=== PATIENT | female | born 1940 | race Caucasian/White ===

== ENCOUNTER 2016-07-31 14:08 | Emergency (ER) | payer MEDICARE, OTHER ==
[~2016-07-31] VITALS: Ht 152.4 cm; Wt 50.0 kg
[~2016-07-31 14:08] MED LIST: ACET325T33 PO; ASPI325T4 PO; HYDR-3498 PO; LEVO500T10 PO; OXYC-481 PO
[2016-07-31 14:15] VITALS: Ht 152.4 cm; Wt 50.0 kg
[2016-07-31] MEDS ORDERED: ALBUTEROL 0.083% (NEB) 2.5 MG/3 ML AMP HHN STA (14:17)
[2016-07-31] MEDS ORDERED: SOD CHLORIDE 0.9% 500 ML IV STA (14:17)
[2016-07-31] MEDS ORDERED: IPRATROPIUM (NEB) 0.5 MG/2.5 ML AMP INH ONE (14:30)
[2016-07-31] MEDS ORDERED: METHYLPREDNISOLONE 125 MG INJ IV ONE ×2 (14:30→16:30)
--- NOTE | 2016-07-31 14:45 | RADRPT ---
PROCEDURE: XR Chest. CLINICAL INDICATION: Shortness of breath. TECHNIQUE: Chest x-ray, single view. COMPARISON: 03/09/2016. FINDINGS: The cardiomediastinal silhouette is normal. Aortic arch atherosclerotic calcification is present. There is no evidence of focal pulmonary opacification or large pleural effusion. Degenerative rajput es of the left shoulder are present. The visualized upper abdomen is unremarkable. IMPRESSION: No radiographic evidence of acute cardiopulmonary pathology. RPTAT: HLST .Lissette Reyes MD, MD Date Time Electronically viewed and signed by .Lissette Reyes MD, MD on 07/31/2016 14:45 .T/
[2016-07-31 14:49] LABS: ADD SCAN DIFF NO
[2016-07-31 15:02] LABS: POTASSIUM 3.8 mmol/L (3.5-5.1)
[2016-07-31 15:05] LABS: CREATININE 0.84 mg/dl (0.44-1.00)
[2016-07-31 15:06] LABS: CALCIUM 9.1 mg/dl (8.4-10.2)
[2016-07-31 15:10] LABS: BASOPHILS % 0.1 % (0.0-2.0); HEMATOCRIT 37.1 % (37.0-47.0); HEMOGLOBIN 11.9 g/dl (12.0-16.0); LYMPHOCYTES # 0.8 10^3/ul (0.8-2.9); LYMPHOCYTES % 11.2 % (15.0-51.0); MEAN CORPUSCULAR HEMOGLOBIN 28.4 pg (29.0-33.0); MEAN CORPUSCULAR HGB CONC 32.1 g/dl (32.0-37.0); MEAN CORPUSCULAR VOLUME 88.5 fl (82.0-101.0); MEAN PLATELET VOLUME 9.8 fl (7.4-10.4); MONOCYTE # 0.4 10^3/ul (0.3-0.9); MONOCYTES % 6.3 % (0.0-11.0); NEUTROPHIL # 5.5 10^3/ul (1.6-7.5); NEUTROPHILS % 82.1 % (39.0-77.0); PLATELET COUNT 147 10^3/UL (140-415); RED BLOOD COUNT 4.19 10^6/ul (4.20-5.40); RED CELL DISTRIBUTION WIDTH 15.4 % (11.5-14.5); WHITE BLOOD COUNT 6.7 10^3/ul (4.8-10.8)
--- NOTE | 2016-07-31 16:10 | ERD ---
ER Documentation Chief Complaint Date/Time DATE: 07/31/16 TIME: 16:06 Chief Complaint cough and congestion x 1 wk HPI This 75-year-old female presents to the emergency room for cough and congestion for 1 weeks duration. The patient denies any fevers, but states that she is "out of her blood pressure medication". The patient states that her medication is trazodone and it helps her at night. The patient states that she has no other complaints at this time, and denies any chest pain or palpitations associated with this. ROS All systems reviewed and are negative except as per history of present illness. Medications Home Meds Active Scripts Levofloxacin* (Levofloxacin*) 500 Mg Tablet, 500 MG PO DAILY, #14 TAB Prov:SHARONDA ROBERSON NP 03/11/16 Oxycodone Hcl* (IR) (Roxicodone*) 5 Mg Tab, 5 MG PO BID Y for PAIN for 30 Days, TAB Prov:SHARONDA ROBERSON NP 03/11/16 Hydrocodone Bit-Acetaminophen (Hydrocodone Bit-APAP) 5-325MG Tablet, 1 TAB PO Q6H Y for PAIN for 30 Days, TAB Prov:SHARONDA ROBERSON NP 03/11/16 Aspirin (Aspirin Lite-Coat) 325 Mg Tablet, 325 MG PO BID for 42 Days, TAB Total 6 weeks course Stop date 04/20/2016. Prov:SHARONDA ROBERSON NP 03/11/16 Acetaminophen* (Tylenol*) 325 Mg Tablet, 650 MG PO Q6H Y for PAIN AND OR ELEVATED TEMP for 30 Days, TAB Prov:SHARONDA ROBERSON NP 03/11/16 Allergies Allergies: Coded Allergies: Sulfa (Sulfonamide Antibiotics) (Unverified Allergy, Severe, THROAT CLOSES , 03/06/16) Penicillins (Verified Allergy, Mild, 03/06/16) methadone (Verified Adverse Reaction, Unknown, VOMITS, 03/06/16) PMhx/Soc History of Surgery: No Anesthesia Reaction: No Hx Neurological Disorder: No Hx Respiratory Disorders: No Hx Cardiac Disorders: Yes (HTN, "irregular heart beat") Hx Psychiatric Problems: No Hx Miscellaneous Medical Probl: Yes (HTN, anxiety, depression) Hx Alcohol Use: No Hx Substance Use: No Hx Tobacco Use: Yes (SMOKING FOR 64 YRS) Smoking Status: Current some day smoker Physical Exam Vitals Vital Signs Date Time Temp Pulse Resp B/P Pulse Ox O2 Delivery O2 Flow Rate FiO2 07/31/16 15:38 106 19 96 Nasal Cannula 2.0 07/31/16 15:36 2.0 07/31/16 15:28 Nasal Cannula 2 07/31/16 14:15 99.5 116 18 165/70 99 Physical Exam Const: Frail-appearing elderly female Head: Atraumatic Eyes: Normal Conjunctiva ENT: Normal External Ears, Nose and Mouth. Neck: Full range of motion..~ No meningismus. Resp: Clear to auscultation bilaterally Cardio: Regular rate and rhythm, no murmurs Abd: Soft, non tender, non distended. Normal bowel sounds Skin: No petechiae or rashes Back: No midline or flank tenderness Ext: No cyanosis, or edema Neur: Awake and alert Psych: Normal Mood and Affect Result Diagram: 07/31/16 1435 07/31/16 1435 Results 24 hrs Laboratory Tests Test 07/31/16 14:35 Anion Gap 18 Basophils # 0.010^3/ul Basophils % 0.1% Blood Urea Nitrogen 23mg/dl Calcium Level 9.1mg/dl Carbon Dioxide Level 28mmol/L Chloride Level 100mmol/L Creatinine 0.84mg/dl Eosinophils # 0.010^3/ul Eosinophils % 0.0% Glucose Level 152mg/dl Hematocrit 37.1% Hemoglobin 11.9g/dl Lactic Acid Level 1.3mmol/L Lymphocytes # 0.810^3/ul Lymphocytes % 11.2% Mean Corpuscular Hemoglobin 28.4pg Mean Corpuscular Hemoglobin Concent 32.1g/dl Mean Corpuscular Volume 88.5fl Mean Platelet Volume 9.8fl Monocytes # 0.410^3/ul Monocytes % 6.3% Neutrophils # 5.510^3/ul Neutrophils % 82.1% Nucleated Red Blood Cells # 0.010^3/ul Nucleated Red Blood Cells % 0.0/100WBC Platelet Count 89788^3/UL Potassium Level 3.8mmol/L Red Blood Count 4.1910^6/ul Red Cell Distribution Width 15.4% Sodium Level 142mmol/L White Blood Count 6.710^3/ul Current Medications Medications (Trade) Dose Ordered Sig/Patsy Route PRN Reason Start Time Stop Time Status Last Admin Dose Admin Sodium Chloride (NS) 500 ml @ 500 mls/hr Q1H STAT IV 07/31/16 14:17 07/31/16 15:16 DC 07/31/16 15:05 Methylprednisolone Sodium Succinate (Solu-Medrol) 125 mg ONCE ONCE IV 07/31/16 14:30 07/31/16 14:31 DC 07/31/16 15:05 Albuterol (Proventil 0.083% (Neb)) 5 mg ONCE STAT HHN 07/31/16 14:17 07/31/16 14:28 DC 07/31/16 15:30 Ipratropium [place] (Atrovent 0.02% (Neb)) 0.5 mg ONCE ONCE INH 07/31/16 14:30 07/31/16 14:31 DC 07/31/16 15:30 Procedures/MDM EKG: Rate/Rhythm: [Normal Sinus Rhythm] QRS, ST, T-waves: [No changes consistent w/ acute ischemia] Impression: [No evidence of ischemia or arrhythmia] Chest X-ray 1V Interpreted by me: Soft Tissue: No acute abnormalities Bones: No acute abnormalities Mediastinum/Cardiac Silhouette/Lungs: [No acute abnormalities] This 75-year-old female presents to the emergency room for evaluation of cough and congestion. The patient was evaluated by myself. She was not hypoxic, she is mildly tachycardic. She was given a breathing treatment of albuterol, and Atrovent. Patient was also given 125 mg of Solu-Medrol IV. Do feel this patient is suffering from a viral bronchitis. She will be discharged home with a prescription for ProAir air, and prednisone. She is hemodynamically stable, no respiratory distress at this time. I advised her that it is not appropriate to start her on blood pressure medications in the emergency room and she will need to follow-up with her primary care physician. The patient was not happy about this, but she did verbalize understanding. Blood pressure is 148/70 at bedside Departure Diagnosis: Primary Impression: Acute bronchitis Condition: Stable MAGALIELizzBHAKTI SAMUELS Jul 31, 2016 16:10
[2016-07-31] MEDS ORDERED: PRED20TA PO (16:11)
[2016-07-31] MEDS ORDERED: ALBU8.5H3 INH (16:11)
[2016-07-31 17:30] VITALS: BP 157/70; PULSE 102; RESP 18; TEMP 98.9
== END 2016-07-31 17:30 | disposition home or self-care (01) ==
LOC: E/R 14:08
DX: J20.9 Acute bronchitis, unspecified (principal); R40.2252 Coma scale, best verbal response, oriented, at arrival to emergency department; I10 Essential (primary) hypertension; F17.210 Nicotine dependence, cigarettes, uncomplicated; R40.2142 Coma scale, eyes open, spontaneous, at arrival to emergency department; R40.2362 Coma scale, best motor response, obeys commands, at arrival to emergency department; Z79.82 Long term (current) use of aspirin
CPT/HCPCS: 36415; 71010; 80048; 83605; 85025; 87040; 94664; 96374; 96376; 99284; J2930; J7040

== ENCOUNTER 2016-08-10 15:29 | Emergency (ER) | payer MEDICARE, OTHER ==
[~2016-08-10] VITALS: Ht 157.5 cm; Wt 70.0 kg
[~2016-08-10 15:29] MED LIST changes: +ALBU8.5H3 INH; -LEVO500T10 PO; +PRED20TA PO
[2016-08-10 15:37] VITALS: Ht 157.5 cm; Wt 70.0 kg
[2016-08-10] MEDS ORDERED: IPRATROPIUM (NEB) 0.5 MG/2.5 ML AMP NEB STA (17:40)
[2016-08-10] MEDS ORDERED: METHYLPREDNISOLONE 125 MG INJ IM STA (17:40)
[2016-08-10] MEDS ORDERED: ALBUTEROL 0.083% (NEB) 2.5 MG/3 ML AMP NEB STA (17:40)
--- NOTE | 2016-08-10 19:13 | RADRPT ---
PROCEDURE: XR Chest. CLINICAL INDICATION: Asthma exacerbation. TECHNIQUE: Portable AP upright view of the chest was obtained. COMPARISON: 07/31/2016 FINDINGS: The cardiomediastinal silhouette is within normal limits. The lungs are clear, the diaphragm in nor mal position. There is no evidence for pleural effusion, pneumothorax or pulmonary vascular congest ion. The osseous structures are intact with no evidence for acute abnormality. RPTAT:HJJR IMPRESSION: No evidence for acute intrathoracic pathology or change from 07/31/2016. Physician Tammy Date Time Electronically viewed and signed by Physician Tammy on 08/10/2016 19:13 JR/
[2016-08-10] MEDS ORDERED: ALBU8.5H3 INH (19:53)
[2016-08-10] MEDS ORDERED: PRED20TA PO (19:53)
[2016-08-10] MEDS ORDERED: AZIT250T94 PO (19:53)
--- NOTE | 2016-08-10 20:08 | ERD ---
ER Documentation Chief Complaint Date/Time DATE: 08/10/16 TIME: 20:03 Chief Complaint Cough HPI This is a 75-year-old female who is here for cough. The patient states that she is had a cough for 3 or 4 days but no fever the cough is dry most with occasional productive clear sputum no shortness of breath she does have a runny nose malaise no lack of appetite no chest pain no dyspnea on exertion orthopnea or shortness of breath. ROS All systems reviewed and are negative except as per history of present illness. Medications Home Meds Active Scripts Albuterol Sulfate* (Proair HFA*) 8.5 Gm Hfa.aer.ad, 2 PUFF INH Q4, #1 INHALER Prov:KATE MANRIQUE. DO 08/10/16 Prednisone* (Prednisone*) 20 Mg Tab, 60 MG PO DAILY for 5 Days, TAB Prov:KATE MANRIQUE A. DO 08/10/16 Azithromycin* (Zithromax*) 250 Mg Tablet, 250 MG PO .ZPACK DIRECTED, #6 TAB TAKE 500 MG (2 TABS) THE FIRST DAY THEN 250 MG (1 TAB) DAYS 2-5 Prov:KATE MANRIQUE DO 08/10/16 Prednisone* (Prednisone*) 20 Mg Tab, 20 MG PO DAILY for 4 Days, TAB Prov:BHAKTI VÁSQUEZ DO 07/31/16 Albuterol Sulfate* (Proair HFA*) 8.5 Gm Hfa.aer.ad, 2 PUFF INH Q4H Y for WHEEZING AND SOB, #1 INHALER Prov:BHAKTI VÁSQUEZ DO 07/31/16 Oxycodone Hcl* (IR) (Roxicodone*) 5 Mg Tab, 5 MG PO BID Y for PAIN for 30 Days, TAB Prov:SHARONDA ROBERSON V. REHABILITATION CLERK 03/11/16 Hydrocodone Bit-Acetaminophen (Hydrocodone Bit-APAP) 5-325MG Tablet, 1 TAB PO Q6H Y for PAIN for 30 Days, TAB Prov:SHARONDA ROBERSON V. REHABILITATION CLERK 03/11/16 Aspirin (Aspirin Lite-Coat) 325 Mg Tablet, 325 MG PO BID for 42 Days, TAB Total 6 weeks course Stop date 04/20/2016. Prov:SHARONDA ROBERSON V. REHABILITATION CLERK 03/11/16 Acetaminophen* (Tylenol*) 325 Mg Tablet, 650 MG PO Q6H Y for PAIN AND OR ELEVATED TEMP for 30 Days, TAB Prov:SHARONDA ROBERSON V. REHABILITATION CLERK 03/11/16 Allergies Allergies: Coded Allergies: Sulfa (Sulfonamide Antibiotics) (Unverified Allergy, Severe, THROAT CLOSES , 03/06/16) Penicillins (Verified Allergy, Mild, 03/06/16) methadone (Verified Adverse Reaction, Unknown, VOMITS, 03/06/16) PMhx/Soc History of Surgery: No Anesthesia Reaction: No Hx Neurological Disorder: No Hx Respiratory Disorders: No Hx Cardiac Disorders: Yes (HTN, "irregular heart beat") Hx Psychiatric Problems: No Hx Miscellaneous Medical Probl: Yes (HTN, anxiety, depression) Hx Alcohol Use: No Hx Substance Use: No Hx Tobacco Use: Yes (SMOKING FOR 64 YRS) Smoking Status: Current every day smoker FmHx Family History: No coronary disease Physical Exam Vitals Vital Signs Date Time Temp Pulse Resp B/P Pulse Ox O2 Delivery O2 Flow Rate FiO2 08/10/16 18:40 98.6 112 18 163/72 99 Room Air 08/10/16 18:05 123 20 99 21 08/10/16 15:37 98.7 123 20 146/65 99 Physical Exam Const: Well-developed, well-nourished Head: Atraumatic, normocephalic Eyes: Normal Conjunctiva, PERRLA, EOMI, normal sclera, no nystagmus ENT: Normal External Ears, Nose and Mouth, moist mucus membranes. Neck: Full range of motion. No meningismus, no lymphadenopathy. Resp: No increased work of breathing is mild diffuse scattered rhonchi Cardio: Regular rate and rhythm, no murmurs, S1 S2 present Abd: Soft, non tender x 4, non distended. Normal bowel sounds, no guarding or rebound, no pulsitile abdominal masses or bruits Skin: No petechiae or rashes, no ecchymosis , no maculopapular rash Back: No midline or flank tenderness Ext: No cyanosis, or edema, FROM x 4, normal inspection, neurovascularly intact x 4 Neur: Awake and alert, STR 5/5 x 4, sensation intact x 4, no focal findings, cerebellum intact Psych: Normal Mood and Affect Results 24 hrs Current Medications Medications (Trade) Dose Ordered Sig/Patsy Route PRN Reason Start Time Stop Time Status Last Admin Dose Admin Albuterol (Proventil 0.083% (Neb)) 7.5 mg ONCE STAT NEB 08/10/16 17:40 08/10/16 17:41 DC 08/10/16 18:01 Ipratropium [place] (Atrovent 0.02% (Neb)) 1.5 mg ONCE STAT NEB 08/10/16 17:40 08/10/16 17:41 DC 08/10/16 18:01 Methylprednisolone Sodium Succinate (Solu-Medrol) 125 mg ONCE STAT IM 08/10/16 17:40 08/10/16 17:41 DC 08/10/16 17:53 Procedures/MDM PROCEDURE: XR Chest. CLINICAL INDICATION: Asthma exacerbation. TECHNIQUE: Portable AP upright view of the chest was obtained. COMPARISON: 07/31/2016 FINDINGS: The cardiomediastinal silhouette is within normal limits. The lungs are clear, the diaphragm in normal position. There is no evidence for pleural effusion, pneumothorax or pulmonary vascular congestion. The osseous structures are intact with no evidence for acute abnormality. RPTAT:HJJR IMPRESSION: No evidence for acute intrathoracic pathology or change from 07/31/2016. Physician Tammy Date Time Electronically viewed and signed by Imtiaz Mortensen Physician on 08/10/2016 19:13 JR/ CC: KATE MANRIQUE DO Patient had some neb treatments and Solu-Medrol. She states she feels much better now. She has no increased work of breathing good air movement, much improved breath sounds Departure Diagnosis: Primary Impression: Bronchitis Condition: Stable Patient Instructions: Bronchitis, Antiobiotic Treatment (Adult) KATE MANRIQUE DO Aug 10, 2016 20:08
[2016-08-10 20:40] VITALS: BP 142/76; PULSE 108; RESP 18; TEMP 98.3
== END 2016-08-10 20:43 | disposition home or self-care (01) ==
LOC: E/R 15:29
DX: J20.9 Acute bronchitis, unspecified (principal); I10 Essential (primary) hypertension; F17.210 Nicotine dependence, cigarettes, uncomplicated; Z79.82 Long term (current) use of aspirin
CPT/HCPCS: 71010; 94644; 96372; 99284; J2930

== ENCOUNTER 2016-10-11 15:34 | Emergency (ER) | payer MEDICARE, OTHER ==
[~2016-10-11] VITALS: Wt 50.0 kg
[~2016-10-11 15:34] MED LIST changes: +AZIT250T94 PO
--- NOTE | 2016-10-11 18:27 | ERD ---
ER Documentation Chief Complaint Date/Time DATE: 10/11/16 TIME: 18:16 Chief Complaint SACRAL PAIN RADIATING TO RIGHT LEG WITH NO TRAUMA, UNABLE TO BEAR WT. HPI This 75-year-old female brought into emergency department today by EMS with complaint of right hip, knee, and foot pain. Patient reports pain is >10 on pain scale. Patient states that she is unable to weight-bear, she is unable to move her leg. Reports that 8 months ago she fractured her hip and was treated with surgery denies total hip. States she was at a rehab in [place] and kicked out by the person running the rehab. Patient states she filed a police report but did not press charges. Patient reports that she is homeless. Patient denies alteration in bowel or bladder, dysuria, patient clean, clean clothes, with a convoluted history. Chart review produces no past visit at [facility] ROS All systems reviewed and are negative except as per history of present illness. Medications Home Meds Active Scripts Albuterol Sulfate* (Proair HFA*) 8.5 Gm Hfa.aer.ad, 2 PUFF INH Q4, #1 INHALER Prov:KATE MANRIQUE DO 08/10/16 Prednisone* (Prednisone*) 20 Mg Tab, 60 MG PO DAILY for 5 Days, TAB Prov:DOLLY MANRIQUESTANDIES Darren. DO 08/10/16 Azithromycin* (Zithromax*) 250 Mg Tablet, 250 MG PO .ZPACK DIRECTED, #6 TAB TAKE 500 MG (2 TABS) THE FIRST DAY THEN 250 MG (1 TAB) DAYS 2-5 Prov:DOLLY MANRIQUESTFROYLAN Sanchez DO 08/10/16 Prednisone* (Prednisone*) 20 Mg Tab, 20 MG PO DAILY for 4 Days, TAB Prov:BHAKTI VÁSQUEZ DO 07/31/16 Albuterol Sulfate* (Proair HFA*) 8.5 Gm Hfa.aer.ad, 2 PUFF INH Q4H Y for WHEEZING AND SOB, #1 INHALER Prov:BHAKTI VÁSQUEZ DO 07/31/16 Oxycodone Hcl* (IR) (Roxicodone*) 5 Mg Tab, 5 MG PO BID Y for PAIN for 30 Days, TAB Prov:SHARONDA ROBERSON V. VIDEO JOURNALIST 03/11/16 Hydrocodone Bit-Acetaminophen (Hydrocodone Bit-APAP) 5-325MG Tablet, 1 TAB PO Q6H Y for PAIN for 30 Days, TAB Prov:ROBERSONBRADLYA Lopez. VIDEO JOURNALIST 03/11/16 Aspirin (Aspirin Lite-Coat) 325 Mg Tablet, 325 MG PO BID for 42 Days, TAB Total 6 weeks course Stop date 04/20/2016. Prov:ROBERSON,SHARONDA V. VIDEO JOURNALIST 03/11/16 Acetaminophen* (Tylenol*) 325 Mg Tablet, 650 MG PO Q6H Y for PAIN AND OR ELEVATED TEMP for 30 Days, TAB Prov:ROBERSON,SHARONDA V. VIDEO JOURNALIST 03/11/16 Allergies Allergies: Coded Allergies: Sulfa (Sulfonamide Antibiotics) (Unverified Allergy, Severe, THROAT CLOSES , 03/06/16) Penicillins (Verified Allergy, Mild, 03/06/16) methadone (Verified Adverse Reaction, Unknown, VOMITS, 03/06/16) PMhx/Soc History of Surgery: No Anesthesia Reaction: No Hx Neurological Disorder: No Hx Respiratory Disorders: No Hx Cardiac Disorders: Yes (HTN, "irregular heart beat") Hx Psychiatric Problems: No Hx Miscellaneous Medical Probl: Yes (HTN, anxiety, depression) Hx Alcohol Use: No Hx Substance Use: No Hx Tobacco Use: Yes (SMOKING FOR 64 YRS) Smoking Status: Current every day smoker Physical Exam Vitals Vital Signs Date Time Temp Pulse Resp B/P Pulse Ox O2 Delivery O2 Flow Rate FiO2 10/11/16 15:43 98.7 110 20 142/67 98 Vitals stable, and triage notes reviewed Physical Exam Const: No acute distress Head: Atraumatic Eyes: Normal Conjunctiva, PERRLA, EOMI ENT: Normal External Ears, Nose and Mouth, mucous membranes moist. Neck: Full range of motion. Resp: Chest rise and fall symmetrically, clear to auscultation bilaterally, no respiratory distress Cardio: Regular rate and rhythm, no murmurs, S1-S2, no S3-S4 Abd: Skin: Back: No midline or flank tenderness Ext: Lower Extremity -right lower extremity Skin: No laceration Compartments: Soft Motor: Limited range of motion, history of ORIF. Sensation: Intact to light touch anterior, lateral, inferior surfaces Bones: Generalized tenderness on hip, knee, and foot and into soft tissue and bony prominence Joints: No effusion or laxity Pulses/Perfusion: 2+ DP, Capillary refill < 2 seconds Neur: Awake and alert Psych: Normal Mood and Affect Results 24 hrs Current Medications Medications (Trade) Dose Ordered Sig/Patsy Route PRN Reason Start Time Stop Time Status Last Admin Dose Admin Acetaminophen/ Hydrocodone Bitart ([place] (5/325)) 1 tab ONCE ONCE PO 10/11/16 18:30 10/11/16 18:31 DC 10/11/16 18:26 Procedures/MDM PROCEDURE: XR Hip. CLINICAL INDICATION: right leg pain TECHNIQUE: AP and frog lateral views of the right hip were performed. COMPARISON: Right femur 03/09/2016 FINDINGS: Intramedullary flora and helical screw through the proximal right femur are again noted, the previously seen intertrochanteric fracture is now healed. Demineralization is again noted. Narrowing of the right hip joint is stable. The right femoral head remains normal in contour. The soft tissues are unremarkable. RPTAT:HJJR IMPRESSION: 1. Radiographic healing of the internally fixated intertrochanteric fracture of the right hip without evidence of acute abnormality. 2. Mild degenerative narrowing of the right hip joint is again noted. Physician Tammy Date Time Electronically viewed and signed by Physician Tammy on 10/11/2016 20:05 This pleasant 75-year-old female presenting to the emergency department today for right hip, knee, ankle pain. Patient is having difficulty ambulating. Patient reports history of fractured hip status post repair, states she was at a rehabilitation center and kicked out. Patient reports that she is no longer able to walk. Cauda equina, not suspected. Patient has no fecal or urine incontinence, hardware displacement, fracture, unlikely that x-ray is obtained. Right hip x-ray shows radiographic healing of the internally fixated intertrochanteric fracture of the right hip without evidence of acute abnormality, mild degenerative narrowing of the right hip joint. Lumbar x-ray shows chronic superior L1, L2, and L4 concave compression deformity present. No evidence of lumbar spine abnormality, multilevel degenerative changes are stable when compared to prior exams. Patient treated with [place]. Patient will be discharged home with a short supply of [place], return to emergency department for worsening of symptoms. I feel the patient is stable for discharge at this time outpatient follow-up with primary care physician. I have discussed results , examination findings, the treatment plan with the patient and family present prior to discharge. Indications for emergent reevaluation, side effects of medication were also discussed. All questions were answered. Patient verbalizes understanding and agrees with plan of care. Departure Diagnosis: Primary Impression: Pain of right leg Condition: Good Patient Instructions: Back Pain (Acute Or Chronic) Additional Instructions: Thank you for for coming to [facility] for your care today. Please ask your nurse or provider if you have questions about your care today and do not leave until all your questions have been answered. Please use any medications given as directed and follow-up with your doctor (or the doctor you were referred to) in the next 2-3 days. If you do not have a primary care doctor you may follow up at the community [facility] - [facility] (listed below). You may also use motrin and tylenol as needed for fever and/or pain unless instructed otherwise by your provider or nurse. Indications for more urgent follow-up have been discussed, but you may return to the Emergency Department at ANY time for any worrisome or worsening symptoms. If you have abdominal pain, please know that no test or exam you received is perfect and you should follow up within 8 hours for continued pain. If you had any imaging studies today, such as an X-Ray or CT Scan, these studies will be reviewed later by a radiologist. You will be called if there are important findings that were not identified today, so make sure the contact information you provided at registration is correct. If you received any narcotic pain control medicine today, such as Vicodin, Morphine or Dilaudid, your coordination and judgment may be affected for a number of hours. Please do not drive or operate heavy machinery, and you may want someone to assist you at home. If you were given a prescription for narcotic medication, be aware that it is very addictive- use sparingly and only if necessary. MISAEL CASTANEDA October 11, 2016 18:27
[2016-10-11] MEDS ORDERED: HYDROCODONE/APAP (5/325) TAB PO ONE (18:30)
--- NOTE | 2016-10-11 20:03 | RADRPT ---
PROCEDURE: XR Lumbar Spine. CLINICAL INDICATION: Low back pain. TECHNIQUE: Supine AP and lateral views of the lumbar spine were obtained. COMPARISON: 03/22/2014 FINDINGS: Mineralization is diffusely decreased. Loss of axial height involving the superior L1, L2 and L4 en dplates is unchanged compared to the prior study. No acute fracture is demonstrated. Mild retrolis thesis of L2 relative to L3 and L3 relative to L4 is unchanged. Degenerative disk narrowing is agai n noted most severe at L5-S1 and to a lesser degree at L2-3, L3-4 and L4-5. The remaining intervert ebral discs are grossly normal in height. Facet arthropathy at L5-S1 is present Paraspinal contours are unremarkable. Calcification of the abdominal aorta is severe RPTAT:HJJR IMPRESSION: 1. Chronic superior L1, L2 and L4 concave compression deformities are present on the study of 03/22. 2. No evidence of acute lumbar spine abnormality. 3. Multilevel degenerative changes are stable compared to the prior exam with disk narrowing greate st at L5-S1. Physician Tammy Date Time Electronically viewed and signed by Physician Tammy on 10/11/2016 20:03 JR/
--- NOTE | 2016-10-11 20:05 | RADRPT ---
PROCEDURE: XR Hip. CLINICAL INDICATION: right leg pain TECHNIQUE: AP and frog lateral views of the right hip were performed. COMPARISON: Right femur 03/09/2016 FINDINGS: Intramedullary flora and helical screw through the proximal right femur are again noted, the previousl y seen intertrochanteric fracture is now healed. Demineralization is again noted. Narrowing of the right hip joint is stable. The right femoral head remains normal in contour. The soft tissues are unremarkable. RPTAT:HJJR IMPRESSION: 1. Radiographic healing of the internally fixated intertrochanteric fracture of the right hip withou t evidence of acute abnormality. 2. Mild degenerative narrowing of the right hip joint is again noted. Physician Tammy Date Time Electronically viewed and signed by Physician Tammy on 10/11/2016 20:05 /
[2016-10-11] MEDS ORDERED: HYDR-906 PO (21:01)
[2016-10-11 21:43] VITALS: BP 138/67; PULSE 64; RESP 20; TEMP 98.3
== END 2016-10-11 21:45 | disposition home or self-care (01) ==
LOC: FTE 15:34
DX: M79.604 Pain in right leg (principal); I10 Essential (primary) hypertension; F17.210 Nicotine dependence, cigarettes, uncomplicated; Z79.82 Long term (current) use of aspirin
CPT/HCPCS: 72100; 73510

== ENCOUNTER 2016-10-14 12:50 | Emergency (ER) | payer MEDICARE, OTHER ==
[~2016-10-14] VITALS: Ht 160 cm; Wt 70.0 kg
[~2016-10-14 12:50] MED LIST changes: +HYDR-906 PO
[2016-10-14 13:00] VITALS: Ht 160 cm; Wt 70.0 kg
[2016-10-14] MEDS ORDERED: IBUPROFEN 600 MG TAB PO ONE (15:00)
--- NOTE | 2016-10-14 15:31 | RADRPT ---
PROCEDURE: XR Ankle. CLINICAL INDICATION: Pain. TECHNIQUE: AP oblique and lateral views of the right ankle were performed. COMPARISON: None. FINDINGS: The osseous structures and articular spaces of the right ankle appear intact. No acute fracture or dislocation is seen. No radiopaque foreign body is identified. There is no significant soft tissue swelling. IMPRESSION: 1. Unremarkable right ankle x-ray series. RPTAT: HJPL .Samuel Christine MD, MD Date Time Electronically viewed and signed by .Samuel Christine MD, MD on 10/14/2016 15:31 .L/
--- NOTE | 2016-10-14 15:32 | RADRPT ---
PROCEDURE: XR Knee. CLINICAL INDICATION: Knee pain. Trauma. TECHNIQUE: AP, lateral, and oblique views of the right knee are available for review. COMPARISON: None available FINDINGS: There is an intramedullary fixation flora with interlocking screw in the right femoral shaft. The kne e joint appears aligned.. No acute fracture or dislocation is seen. Alignment is anatomic. There is no significant joint effusion. Soft tissues are within normal limits. Calcific atherosclerosis of the femoral artery is present. IMPRESSION: 1. Intramedullary fixation flora in the right femur.. 2. No acute fracture or dislocation is seen. RPTAT: HJPL .Samuel Christine MD, MD Date Time Electronically viewed and signed by .Samuel Christine MD, on 10/14/2016 15:32 .L/
--- NOTE | 2016-10-14 15:36 | ERD ---
ER Documentation Chief Complaint Date/Time DATE: 10/14/16 TIME: 1305 Chief Complaint RT LEG/ANKLE PAIN. HPI 75-year-old female presents the emergency department complaining of right leg and right knee pain. Patient is a somewhat difficult tangential historian. She tells me that she has been having pain for some time now, possibly 8 years. However, she states that she was leaving our hospital after an evaluation 2 days ago when she had a slip and fall and twisted her right ankle. She states she has been having right ankle pain since that time. She denies numbness tingling or loss of function. She denies any other acute trauma. ROS All systems reviewed and are negative except as per history of present illness. Medications Home Meds Active Scripts Hydrocodone Bit-Acetaminophen (Hydrocodone Bit-APAP) 5-325MG Tablet, 1 TAB PO Q6H Y for PAIN for 30 Days, TAB Prov:SHARONDA ROBERSON V. [employer]UCT[employer] STEEL ERECTION SUPERVISOR 03/11/16 Discontinued Scripts Hydrocodone/Acetaminophen ([place] 5-325 Tablet) 1 Each Tablet, 1 TAB PO Q6H Y for PAIN, #7 TAB Prov:TONYA,MISAEL 10/11/16 Albuterol Sulfate* (Proair HFA*) 8.5 Gm Hfa.aer.ad, 2 PUFF INH Q4, #1 INHALER Prov:LEDEDEOSDOLLYSTOLOS A. DO 08/10/16 Prednisone* (Prednisone*) 20 Mg Tab, 60 MG PO DAILY for 5 Days, TAB Prov:LEKKOS,APOSTOLOS A. DO 08/10/16 Azithromycin* (Zithromax*) 250 Mg Tablet, 250 MG PO .SILVIA DIRECTED, #6 TAB TAKE 500 MG (2 TABS) THE FIRST DAY THEN 250 MG (1 TAB) DAYS 2-5 Prov:LEKKOSAPOSTOLOS A. DO 08/10/16 Prednisone* (Prednisone*) 20 Mg Tab, 20 MG PO DAILY for 4 Days, TAB Prov:BHAKTI VÁSQUEZ DO 07/31/16 Albuterol Sulfate* (Proair HFA*) 8.5 Gm Hfa.aer.ad, 2 PUFF INH Q4H Y for WHEEZING AND SOB, #1 INHALER Prov:BHAKTI VÁSQUEZ DO 07/31/16 Oxycodone Hcl* (IR) (Roxicodone*) 5 Mg Tab, 5 MG PO BID Y for PAIN for 30 Days, TAB Prov:SHARONDA ROBERSON V. [employer] ERE[employer] SUPERVISOR 03/11/16 Aspirin (Aspirin Lite-Coat) 325 Mg Tablet, 325 MG PO BID for 42 Days, TAB Total 6 weeks course Stop date 04/20/2016. Prov:ROBERSON,SHARONDA V. [employer]UCTURAL STEEL ERECTION SUPERVISOR 03/11/16 Acetaminophen* (Tylenol*) 325 Mg Tablet, 650 MG PO Q6H Y for PAIN AND OR ELEVATED TEMP for 30 Days, TAB Prov:ROBERSON,SHARONDA V. [employer] STE[employer] ERECTION SUPERVISOR 03/11/16 Allergies Allergies: Coded Allergies: Sulfa (Sulfonamide Antibiotics) (Unverified Allergy, Severe, THROAT CLOSES , 10/14/16) Penicillins (Verified Allergy, Mild, 10/14/16) methadone (Verified Adverse Reaction, Unknown, VOMITS, 03/06/16) PMhx/Soc History of Surgery: No Anesthesia Reaction: No Hx Neurological Disorder: No Hx Respiratory Disorders: No Hx Cardiac Disorders: Yes (HTN, "irregular heart beat") Hx Psychiatric Problems: No Hx Miscellaneous Medical Probl: Yes (HTN, anxiety, depression) Hx Alcohol Use: No Hx Substance Use: No Hx Tobacco Use: Yes (SMOKING FOR 64 YRS) Smoking Status: Never smoker FmHx Noncontributory for chief complaint Physical Exam Vitals Vital Signs Date Time Temp Pulse Resp B/P Pulse Ox O2 Delivery O2 Flow Rate FiO2 10/14/16 13:00 97.9 101 18 145/89 100 Physical Exam GENERAL: Patient is a disheveled elderly female with poor hygiene but in no acute distress HEENT: Pupils equal, round, and reactive to light. EOMI. There is no scleral icterus. NECK: C-spine is soft and supple, there is no meningismus. There is no cervical lymphadenopathy. LUNGS: Clear to auscultation bilaterally. There are no rales, wheezes or rhonchi. HEART: Regular rate and rhythm, no murmurs, clicks, rubs or gallops. ABDOMEN: Soft, non-tender, non-distended. There are bowel sounds in all four quadrants. No rebound or guarding. EXTREMITIES: There is no peripheral cyanosis or edema. No focal swelling or erythema. NEURO: The patient moves all four extremities with 5/5 strength. Cranial nerves II - XII are intact. Normal gait. Alert and oriented SKIN: There is no apparent rash or petechiae. HEME/LYMPHATIC: There is no evidence of excessive bruising or lymphedema. PSYCHIATRIC: The patient does not appear anxious or depressed. Results 24 hrs Current Medications Medications (Trade) Dose Ordered Sig/Patsy Route PRN Reason Start Time Stop Time Status Last Admin Dose Admin Ibuprofen (Motrin) 600 mg ONCE ONCE PO 10/14/16 15:00 10/14/16 15:01 DC 10/14/16 15:08 Procedures/MDM Patient was taken to a room, seen and evaluated. Comfort measures were initiated. Diagnostic tests were ordered and reviewed. RADIOLOGY: reviewed with the radiologist CONSULTATION: director client services was notified. REEVALUATION: Patient remained comfortable and ambulatory in the department. MEDICAL DECISION MAKIN-year-old female presents to the emergency department with questionable right leg pain. Imaging studies show no evidence of fracture and clinical examination, including her ambulatory status, would indicate no significant injury. Patient is homeless and I have involved social media developer for placement. From a medical standpoint, patient is stable and appropriate for discharge and outpatient care. She will be maintained in our emergency department pending social media developer evaluation. Departure Diagnosis: Primary Impression: Ankle pain Patient Instructions: Sprain, Ankle, With X-Ray Additional Instructions: Return for any problems or concerns ELPIDIO BUSTOS October 14, 2016 15:36
== END 2016-10-14 16:37 | disposition home or self-care (01) ==
LOC: E/R 12:50
DX: M25.571 Pain in right ankle and joints of right foot (principal); I10 Essential (primary) hypertension; R40.2142 Coma scale, eyes open, spontaneous, at arrival to emergency department; R40.2252 Coma scale, best verbal response, oriented, at arrival to emergency department; R40.2362 Coma scale, best motor response, obeys commands, at arrival to emergency department; Z79.82 Long term (current) use of aspirin
CPT/HCPCS: 73562

== ENCOUNTER 2016-11-14 13:10 | Emergency (ER) | payer MEDICARE, OTHER ==
[~2016-11-14] VITALS: Ht 162.6 cm; Wt 52.5 kg
[~2016-11-14 13:10] MED LIST changes: -ACET325T33 PO; -ALBU8.5H3 INH; -ASPI325T4 PO; -AZIT250T94 PO; -HYDR-906 PO; -OXYC-481 PO; -PRED20TA PO
[2016-11-14 13:13] VITALS: Ht 162.6 cm; Wt 52.5 kg
[2016-11-14] MEDS ORDERED: SOD CHLORIDE 0.9% 1,000 ML IV STA (13:40)
[2016-11-14 14:12] LABS: HEMATOCRIT 37.6 % (37.0-47.0); HEMOGLOBIN 11.9 g/dl (12.0-16.0); MEAN CORPUSCULAR HGB CONC 31.6 g/dl (32.0-37.0); MEAN CORPUSCULAR VOLUME 91.5 fl (82.0-101.0); MEAN PLATELET VOLUME 10.9 fl (7.4-10.4); RED BLOOD COUNT 4.11 10^6/ul (4.20-5.40); RED CELL DISTRIBUTION WIDTH 15.3 % (11.5-14.5)
[2016-11-14 14:16] LABS: ADD SCAN DIFF NO; PLATELET COUNT 215 10^3/UL (140-415)
[2016-11-14 14:25] LABS: ALBUMIN 4.7 g/dl (3.3-4.9); ALBUMIN/GLOBULIN RATIO 1.95; BILIRUBIN,INDIRECT 0.1 mg/dl (0-1.1); BILIRUBIN,TOTAL 0.1 mg/dl (0.2-1.3); CALCIUM 9.3 mg/dl (8.4-10.2); CREATININE 0.96 mg/dl (0.44-1.00); POTASSIUM 4.3 mmol/L (3.5-5.1); TOTAL PROTEIN 7.1 g/dl (6.1-8.1)
[2016-11-14] MEDS ORDERED: CARI350T29 PO (14:41)
[2016-11-14 15:10] LABS: ADD UMIC YES; UR ASCORBIC ACID NEGATIVE (NEGATIVE); UR BILIRUBIN (Dip) NEGATIVE (NEGATIVE); UR BLOOD (Dip) 3+ mg/dL (NEGATIVE); UR CLARITY SLIGHTLY CLOUDY (CLEAR); UR COLOR YELLOW (YELLOW); UR GLUCOSE (Dip) NEGATIVE (NEGATIVE); UR KETONES (Dip) NEGATIVE (NEGATIVE); UR LEUKOCYTE ESTERASE (Dip) TRACE Leu/ul (NEGATIVE); UR NITRITE (Dip) NEGATIVE (NEGATIVE); UR RBC > 182 /HPF (0-5); UR SPECIFIC GRAVITY (Dip) 1.017 (1.003-1.030); UR TOTAL PROTEIN (Dip) 2+ mg/dl (NEGATIVE); UR UROBILINOGEN (Dip) NEGATIVE (NEGATIVE)
[2016-11-14 15:15] LABS: EOSINOPHILS # 0.1 10^3/ul (0.0-0.5); LYMPHOCYTES # 1.9 10^3/ul (0.8-2.9); MONOCYTE # 0.2 10^3/ul (0.3-0.9); NEUTROPHIL # 2.9 10^3/ul (1.6-7.5)
[2016-11-14] MEDS ORDERED: CIPROFLOXACIN 250 MG TAB PO ONE (15:30)
[2016-11-14 16:26] VITALS: BP 113/48; PULSE 91; RESP 16; TEMP 98.8
--- NOTE | 2016-11-14 16:36 | RADRPT ---
PROCEDURE: CT Abdomen and Pelvis without contrast. CLINICAL INDICATION: Abdominal and pelvic pain. TECHNIQUE: CT scan of the abdomen and pelvis without contrast was performed. Coronal and sagittal reformatted images were obtained from the axial source images. Images were reviewed on a [employer] PACS workstation. Total exam DLP is 343.61 mGy-cm. CTDIvol is 6.86 mGy. One or more of the fo lloherriman dose reduction techniques were used: Automated exposure control, adjustment of the mA and/or kV according to patient size, use of iterative reconstruction technique. COMPARISON: None. FINDINGS: The lung bases are normal. There is no pleural effusion. The liver is normal in size and attenuation. There is no focal hepatic lesion. The gallbladder is distended but otherwise normal. The bile ducts are normal. There is a moderate h iatus hernia. The spleen is normal in size. There is no focal splenic lesion. Both adrenals are normal with no enlargement or mass. The pancreas is unremarkable with no mass or evidence of pancreatitis. There is no solid renal mass or hydronephrosis. There is a benign 2.9 x 2.6 cm cyst in the mid to lo wer left kidney laterally. There is no renal calculus or ureteral calculus. The abdominal aorta is not dilated. There is calcification in the aorta consistent with atheroscler osis. There is no retroperitoneal lymphadenopathy or mass. There is no pelvic lymphadenopathy or mass. The bladder and distal ureters are normal. The periappendiceal region is unremarkable with no evidence of appendicitis. There is diverticulosis of the sigmoid colon. There is no evidence of diverticulitis. The bowel an d mesentery are otherwise normal. There is no free fluid or free gas. There is an open reduction and internal fixation of the right hip with a screw in the neck of the fe mur and a flora in the shaft of the femur. There is solid bony union of an intertrochanteric fracture of the right hip. There are degenerative changes of the hips and spine. There are old compression fractures of L1 and L2 vertebrae. Prominent Schmorl's nodes are present in the L3 and L4 vertebrae . There is no acute fracture or lytic lesion. IMPRESSION: 1. Distended gallbladder. No evidence of cholecystitis. Normal bile ducts. 2. Moderate hiatus hernia. 3. Benign 2.9 cm cyst in the mid to lower left kidney. 4. Atherosclerosis. 5. Diverticulosis of the sigmoid colon without evidence of diverticulitis. 6. Prior right hip surgery. 7. Degenerative changes of the spine and hips. 8. Old compression fractures of L1 and L2. 9. Otherwise unremarkable study. RPTAT: QQ .Genaro Abbott MD, MD Date Time Electronically viewed and signed by .Genaro Abbott MD, MD on 11/14/2016 16:35 .R/
--- NOTE | 2016-11-14 16:40 | ERD ---
ER Documentation Chief Complaint Date/Time DATE: 11/14/16 TIME: 16:38 Chief Complaint left flank pain x 11 days; painful urination HPI This is a 76-year-old female who presents to the emergency room for evaluation of abdominal pain. Patient localizes her abdominal pain to the left portion of the abdomen states is an achy pain sometimes worse with urination. She denies any fevers associated with this but does say she has mild nausea. The patient states that her pain is sometimes worse with urination however she denies any vaginal discharge at this time or any blood in her urine. The patient came to the ER today for further evaluation and is denying any relieving factors for her pain. ROS All systems reviewed and are negative except as per history of present illness. Medications Home Meds Active Scripts Hydrocodone Bit-Acetaminophen (Hydrocodone Bit-APAP) 5-325MG Tablet, 1 TAB PO Q6H Y for PAIN for 30 Days, TAB Prov:SHARONDA ROBERSON V. LEAD VULCANIZING OPERATOR 03/11/16 Reported Medications Carisoprodol* (Carisoprodol*) 350 Mg Tablet, 350 MG PO BID Y for MUSCLE SPASMS, TAB 11/14/16 Allergies Allergies: Coded Allergies: Sulfa (Sulfonamide Antibiotics) (Unverified Allergy, Severe, THROAT CLOSES , 11/14/16) Penicillins (Verified Allergy, Mild, 11/14/16) cephalexin (Unverified Adverse Reaction, Unknown, STOMACH ACHE, 11/14/16) methadone (Verified Adverse Reaction, Unknown, VOMITS, 11/14/16) PMhx/Soc History of Surgery: No Anesthesia Reaction: No Hx Neurological Disorder: No Hx Respiratory Disorders: No Hx Cardiac Disorders: Yes (HTN, "irregular heart beat") Hx Psychiatric Problems: No Hx Miscellaneous Medical Probl: Yes (HTN, anxiety, depression) Hx Alcohol Use: No Hx Substance Use: No Hx Tobacco Use: Yes (SMOKING FOR 64 YRS) Smoking Status: Current every day smoker Physical Exam Vitals Vital Signs Date Time Temp Pulse Resp B/P Pulse Ox O2 Delivery O2 Flow Rate FiO2 11/14/16 16:26 98.8 91 16 113/48 98 Room Air 11/14/16 13:13 98.3 110 20 126/72 98 Physical Exam INITIAL VITAL SIGNS: Reviewed by me GENERAL: The patient is well developed and appropriate for usual state of health in no apparent distress HEENT: Pupils equal, round, and reactive to light. EOMI. There is no scleral icterus. NECK: C-spine is soft and supple, there is no meningismus. There is no cervical lymphadenopathy. LUNGS: Clear to auscultation bilaterally. There are no rales, wheezes or rhonchi. HEART: Regular rate and rhythm, no murmurs, clicks, rubs or gallops. ABDOMEN: Left-sided CVAT, soft, non-tender, non-distended. There are bowel sounds in all four quadrants. No rebound or guarding. EXTREMITIES: There is no peripheral cyanosis or edema. No focal swelling or erythema. NEUROLOGICAL: The patient moves all four extremities with 5/5 strength. Cranial nerves II - XII are intact. Normal gait. Alert and oriented SKIN: There is no apparent rash or petechiae. HEME/LYMPHATIC: There is no evidence of excessive bruising or lymphedema. PSYCHIATRIC: The patient does not appear anxious or depressed. Result Diagram: 11/14/16 1302 11/14/16 1302 Results 24 hrs Laboratory Tests Test 11/14/16 13:02 11/14/16 14:54 White Blood Count 5.010^3/ul Red Blood Count 4.1110^6/ul Hemoglobin 11.9g/dl Hematocrit 37.6% Mean Corpuscular Volume 91.5fl Mean Corpuscular Hemoglobin 29.0pg Mean Corpuscular Hemoglobin Concent 31.6g/dl Red Cell Distribution Width 15.3% Platelet Count 57382^3/UL Mean Platelet Volume 10.9fl Neutrophils % 58.0% Lymphocytes % 37.0% Monocytes % 4.0% Eosinophils % 1.0% Neutrophils # 2.910^3/ul Lymphocytes # 1.910^3/ul Monocytes # 0.210^3/ul Eosinophils # 0.110^3/ul Sodium Level 140mmol/L Potassium Level 4.3mmol/L Chloride Level 104mmol/L Carbon Dioxide Level 27mmol/L Anion Gap 13 Blood Urea Nitrogen 21mg/dl Creatinine 0.96mg/dl Glucose Level 88mg/dl Calcium Level 9.3mg/dl Total Bilirubin 0.1mg/dl Direct Bilirubin 0.00mg/dl Indirect Bilirubin 0.1mg/dl Aspartate Amino Transf (AST/SGOT) 85IU/L Alanine Aminotransferase (ALT/SGPT) 73IU/L Alkaline Phosphatase 125IU/L Total Protein 7.1g/dl Albumin 4.7g/dl Globulin 2.40g/dl Albumin/Globulin Ratio 1.95 Lipase 106U/L Urine Color YELLOW Urine Clarity SLIGHTLY CLOUDY Urine pH 7.0 Urine Specific [place] 1.017 Urine Ketones NEGATIVEmg/dL Urine Nitrite NEGATIVEmg/dL Urine Bilirubin NEGATIVEmg/dL Urine Urobilinogen NEGATIVEmg/dL Urine Leukocyte Esterase TRACELeu/ul Urine Microscopic RBC > 182/HPF Urine Microscopic WBC 57/HPF Urine Hemoglobin 3+mg/dL Urine Glucose NEGATIVEmg/dL Urine Total Protein 2+mg/dl Current Medications Medications (Trade) Dose Ordered Sig/Patsy Route PRN Reason Start Time Stop Time Status Last Admin Dose Admin Sodium Chloride (NS) 1,000 ml @ 1,000 mls/hr Q1H STAT IV 11/14/16 13:40 11/14/16 14:39 DC Ciprofloxacin (Cipro) 750 mg ONCE ONCE PO 11/14/16 15:30 11/14/16 15:31 DC 11/14/16 16:16 Procedures/MDM CT abdomen pelvis without: 1. Distended gallbladder. No evidence of cholecystitis. Normal bile ducts. 2. Moderate hiatus hernia. 3. Benign 2.9 cm cyst in the mid to lower left kidney. 4. Atherosclerosis. 5. Diverticulosis of the sigmoid colon without evidence of diverticulitis. 6. Prior right hip surgery. 7. Degenerative changes of the spine and hips. 8. Old compression fractures of L1 and L2. 9. Otherwise unremarkable study. This 76-year-old female presents to the ER for evaluation of abdominal pain and flank pain. The patient did have left-sided CVAT on my examination. She was afebrile and hemodynamically stable here in the emergency room. Urine does show blood in the urine and some white blood cells. A urine culture was obtained and given this patient's symptoms of painful urination the patient was given ciprofloxacin in the emergency room and will be discharged home at this time with a prescription for ciprofloxacin for acute cystitis. The patient does have old compression fractures however she is a bleeding in the emergency room without difficulty. Smoking Cessation Therapy: Pt. was lectured for greater than 3 minutes on the health risks of continued smoking and the benefits of cessation. Departure Diagnosis: Primary Impression: Flank pain Additional Impressions: Acute cystitis Tobacco abuse Tobacco abuse counseling Condition: Stable BHAKTI VÁSQUEZ DO Nov 14, 2016 16:40
[2016-11-14] MEDS ORDERED: CIPR500T4 PO (16:41)
== END 2016-11-14 17:08 | disposition home or self-care (01) ==
LOC: E/R 13:10
DX: R10.9 Unspecified abdominal pain (principal); N30.00 Acute cystitis without hematuria; F17.210 Nicotine dependence, cigarettes, uncomplicated; I10 Essential (primary) hypertension; Z71.6 Tobacco abuse counseling
CPT/HCPCS: 74176; 80053; 81001; 83690; 85025; 87086; J7030; 36415